=== PATIENT | female | born 1950 | race Caucasian/White ===

== ENCOUNTER 2016-04-03 11:07 | Observation (INO) | payer BC, MEDICARE ==
[2016-04-03] MEDS ORDERED: BABY ASPIRIN 81 MG CHEW PO ONE (11:12)
[2016-04-03] MEDS ORDERED: NITRO-BID 2% UD PACKETS TOP ONE (11:12)
[2016-04-03] MEDS ORDERED: ATARAX 25 MG PO ONE (11:13)
[2016-04-03] MEDS ORDERED: Sodium Chloride 0.9% 1000 ML 1,000 ML IV SCH (11:15)
[2016-04-03] MEDS ORDERED: Sodium Chloride 0.9% 1000 ML 1,000 ML ONE (11:19)
[2016-04-03] MEDS ORDERED: NITRO-BID 2% UD PACKETS ONE (11:19)
[2016-04-03] MEDS ORDERED: BABY ASPIRIN 81 MG CHEW ONE (11:19)
[2016-04-03] MEDS ORDERED: ATARAX 25 MG ONE (11:19)
--- NOTE | 2016-04-03 11:27 | ERPHSYRPT ---
- History of Present Illness Time Seen by Provider: 04/03/16 11:12 Historian: patient Patient Subjective Stated Complaint: PT REPORTS WAKING UP THIS AM WITH CHEST PRESSURE ET A FEELING LIKE SHE COULDN'T GET HER BREATH-DENIES VOMITING-SLIGHT HEADACHE ET INTERMITTANT NAUSEA Triage Nursing Assessment: PT PINK WARM ET DRY-RESP NONLABORED WITH LUNGS CLEAR- RIGHT RADIAL PULSE REGULAR ET STRONG Physician History: CC: chest pain Hx: 66 y/o patient of Dr Delong and cardiology. She has hx of HTN but no heart disease. She has had some chest tightness in the past 2 weeks. It was worse today. Radiated to her back and neck. She felt some diff breathing. Was seen at office and sent to ER. Continues to have chest tightness. No fever, chills, cough. No abd pain. No vomiting. Quality: tightness Chest Pain Radiation: neck, back Severity of Pain-Max: moderate Severity of Pain-Current: moderate Nitro Today/Relief: no nitro taken today Aspirin Treatment Today: 81 mg x 2, provided by ED Allergies/Adverse Reactions: Sulfa (Sulfonamide Antibiotics) [Sulfa(Sulfonamide Antibiotics)] Allergy ( Verified 04/03/16 11:17) Home Medications: Aspirin 81 gm Chew [Baby Aspirin 81 mg Chew] 81 mg PO DAILY 03/31/14 [ History] Levothyroxine Sodium 75 Mcg [Synthroid 75 Mcg] 75 mcg PO DAILY 03/31/14 [ History] Pravastatin Sodium [Pravachol] 40 mg PO DAILY 03/31/14 [History] Omeprazole 20 MG [Prilosec 20 mg] 20 mg PO DAILY 07/06/14 [History] Estrogens, Conjugated [Premarin] 1.25 mg PO DAILY 04/03/16 [History] Fluoxetine HCl [Prozac] 40 mg PO DAILY 04/03/16 [History] Losartan Potassium 50 mg [Cozaar 50 MG] 50 mg PO DAILY 04/03/16 [History] Hx Tetanus, Diphtheria Vaccination/Date Given: No Hx Influenza Vaccination/Date Given: No Hx Pneumococcal Vaccination/Date Given: Yes Immunizations Up to Date: Yes - Review of Systems Constitutional: Malaise, Weakness, No Fever, No Chills Eyes: No Symptoms Ears, Nose, & Throat: No Symptoms Respiratory: Dyspnea, No Cough Cardiac: Chest Pain, No Edema, No Palpitations, No Syncope Abdominal/Gastrointestinal: No Abdominal Pain, No Nausea, No Vomiting Skin: No Rash Neurological: No Headache All Other Systems: Reviewed and Negative - Past Medical History Pertinent Past Medical History: Yes Neurological History: No Pertinent History ENT History: No Pertinent History Cardiac History: High Cholesterol, Hypertension Respiratory History: No Pertinent History Endocrine Medical History: Hypothyroidism Musculoskeletal History: Other GI Medical History: GERD History: No Pertinent History Psycho-Social History: Depression Female Reproductive Disorders: Fibroids Other Medical History: bulging disc jhonny x3 - Past Surgical History Past Surgical History: Yes Neuro Surgical History: No Pertinent History Cardiac: Cardiac Catheterization Respiratory: No Pertinent History Gastrointestinal: Appendectomy, Cholecystectomy Genitourinary: No Pertinent History Musculoskeletal: No Pertinent History Female Surgical History: Hysterectomy, Other Other Surgical History: Breast. Sinus - Social History Smoking Status: Current every day smoker How long have you smoked: YRS Exposure to second hand smoke: Yes Drug Use: none Patient Lives Alone: No - Female History Hx Now: No - Nursing Vital Signs Temperature: 98.8 F Temperature Source: Oral Pulse Rate: 111 Respiratory Rate: 22 Pain Intensity: 8 - Physical Exam General Appearance: alert Eye Exam: PERRL/EOMI Ears, Nose, Throat Exam: normal ENT inspection, moist mucous membranes Neck Exam: normal inspection, non-tender, supple Respiratory Exam: normal breath sounds, lungs clear Cardiovascular Exam: regular rate/rhythm Gastrointestinal/Abdomen Exam: soft, No tenderness, No distention Back Exam: normal inspection Extremity Exam: normal inspection, normal range of motion, No calf tenderness, No pedal edema Neurologic Exam: alert, oriented x 3, cooperative, sensation nml, No motor deficits Skin Exam: warm, dry, No rash SpO2 Interpretation: normal SpO2: 96 Oxygen Delivery: Room Air - Course Nursing assessment & vital signs reviewed: Yes EKG Interpreted by Me: RATE (100), Sinus Rhythm, NORMAL AXIS, NORMAL INTERVALS ( QTc 467), NORMAL QRS, NORMAL ST-T - Radiology Exams cxr X-ray Interpretation: Reviewed by me, Negative Ordered Tests: Active Orders 24 hr Category Date Time Status Facility Security Officer STAT Care 04/03/16 11:12 Active Clean Catch Urine Specimen STAT Care 04/03/16 12:13 Active EKG-ER Only STAT Care 04/03/16 11:12 Active IV Insertion STAT Care 04/03/16 11:12 Active Pulse Oximetry (ED) STAT Care 04/03/16 11:12 Active CHEST 1 VIEW (PORTABLE) Stat Exams 04/03/16 11:13 Completed CBC W DIFF Stat Lab 04/03/16 11:25 Completed CMP Stat Lab 04/03/16 11:25 Completed PROTIME WITH INR Stat Lab 04/03/16 11:25 Completed PTT Stat Lab 04/03/16 11:25 Completed TROPONIN Q3H Lab 04/03/16 11:25 Completed TROPONIN Q3H Lab 04/03/16 14:15 Ordered TROPONIN Q3H Lab 04/03/16 17:15 Ordered TROPONIN Q3H Lab 04/03/16 20:15 Ordered TROPONIN Q3H Lab 04/03/16 23:15 Ordered UA Stat Lab 04/03/16 12:13 Ordered Medication Summary Generic Name Dose Route Start Last Admin Trade Name Freq PRN Reason Stop Dose Admin Sodium Chloride 1,000 mls @ 100 mls/hr 04/03/16 11:15 04/03/16 11:25 Sodium Chloride 0.9% 1000 Ml IV 05/03/16 11:14 100 mls/hr .Q10H ARAM Administration Discontinued Medications Generic Name Dose Route Start Last Admin Trade Name Freq PRN Reason Stop Dose Admin Aspirin 162 mg 04/03/16 11:12 04/03/16 11:24 Baby Aspirin 81 Mg Chew PO 04/03/16 11:13 162 mg STAT ONE Administration Aspirin Confirm 04/03/16 11:19 Baby Aspirin 81 Mg Chew Administered 04/03/16 11:20 Dose 162 mg .ROUTE .STK-MED ONE Hydroxyzine HCl 25 mg 04/03/16 11:13 04/03/16 11:25 Atarax 25 Mg PO 04/03/16 11:14 25 mg STAT ONE Administration Hydroxyzine HCl Confirm 04/03/16 11:19 Atarax 25 Mg Administered 04/03/16 11:20 Dose 25 mg .ROUTE .STK-MED ONE Sodium Chloride Confirm 04/03/16 11:19 Sodium Chloride 0.9% 1000 Ml Administered 04/03/16 11:20 Dose 1,000 mls @ ud .ROUTE .STK-MED ONE Nitroglycerin 1 gm 04/03/16 11:12 04/03/16 11:25 Nitro-Bid 2% Ud Packets TOP 04/03/16 11:13 1 gm STAT ONE Administration Nitroglycerin Confirm 04/03/16 11:19 Nitro-Bid 2% Ud Packets Administered 04/03/16 11:20 Dose 1 gm .ROUTE .STK-MED ONE Lab/Rad Data: Laboratory Result Diagrams 04/03/16 11:25 04/03/16 11:25 Laboratory Results 04/03/16 04/03/16 04/03/16 Range/Units 11:25 11:25 11:25 WBC (4.0-10.5) K/mm3 RBC (4.1-5.4) M/mm3 Hgb (12.0-16.0) gm/dl Hct (35-47) % MCV (78-100) fl MCH (26-32) pg MCHC (32-36) g/dl RDW (11.5-14.0) % Plt Count (150-450) K/mm3 MPV (6-9.5) fl Gran % (36.0-66.0) % Lymphocytes % (24.0-44.0) % Monocytes % (0.0-12.0) % Eosinophils % (0.00-5.0) % Basophils % (0.0-0.4) % Basophils # (0-0.4) INR 1.04 (0.8-3.0) PTT 29.9 (25.3-37.0) SECONDS Sodium 136 (136-145) mEq/L Potassium 3.9 (3.5-5.1) mEq/L Chloride 98 (98-107) mEq/L Carbon Dioxide 29.9 (21-32) mEq/L Anion Gap 12.3 (5-15) MEQ/L BUN 10 (9-20) mg/dL Creatinine 0.81 (0.55-1.30) mg/dl Estimated GFR > 60 ML/MIN Glucose 92 (70-110) MG/DL Calcium 9.3 (8.5-10.1) mg/dL Total Bilirubin 0.3 (0.2-1.0) mg/dL AST 15 (15-37) U/L ALT 12 (12-78) U/L Alkaline Phosphatase 142 H (46-116) U/L Troponin I < 0.017 (0.000-0.056) ng/ml Serum Total Protein 7.7 (6.4-8.2) gm/dL Albumin 3.2 L (3.4-5.0) g/dL 04/03/16 Range/Units 11:25 WBC 15.6 H (4.0-10.5) K/mm3 RBC 4.21 (4.1-5.4) M/mm3 Hgb 11.7 L (12.0-16.0) gm/dl Hct 36.2 (35-47) % MCV 86.0 (78-100) fl MCH 27.7 (26-32) pg MCHC 32.3 (32-36) g/dl RDW 13.8 (11.5-14.0) % Plt Count 390 (150-450) K/mm3 MPV 9.3 (6-9.5) fl Gran % 81.2 H (36.0-66.0) % Lymphocytes % 13.3 L (24.0-44.0) % Monocytes % 5.1 (0.0-12.0) % Eosinophils % 0.1 (0.00-5.0) % Basophils % 0.3 (0.0-0.4) % Basophils # 0.04 (0-0.4) INR (0.8-3.0) PTT (25.3-37.0) SECONDS Sodium (136-145) mEq/L Potassium (3.5-5.1) mEq/L Chloride (98-107) mEq/L Carbon Dioxide (21-32) mEq/L Anion Gap (5-15) MEQ/L BUN (9-20) mg/dL Creatinine (0.55-1.30) mg/dl Estimated GFR ML/MIN Glucose (70-110) MG/DL Calcium (8.5-10.1) mg/dL Total Bilirubin (0.2-1.0) mg/dL AST (15-37) U/L ALT (12-78) U/L Alkaline Phosphatase (46-116) U/L Troponin I (0.000-0.056) ng/ml Serum Total Protein (6.4-8.2) gm/dL Albumin (3.4-5.0) g/dL - Progress Progress Note: 04/03/16 12:18 The pain is improved with NTG paste. She feels tired. Symptoms suggest unstable angina. No current of injury and negative troponin. She agrees for observation here. Called Dr Richards for Wei for Tele obs. Discussed with .: Susie Will see patient in: hospital (observation) Counseled pt/family regarding: lab results, diagnosis, need for follow-up, rad results - Departure Time of Disposition: 12:19 Departure Disposition: Observation Clinical Impression: Chest pain, rule out acute myocardial infarction, Unstable angina, Smoker Condition: Fair Critical Care Time: No Referrals: ANIRUDH DELONG MD [Primary Care Provider] -
--- NOTE | 2016-04-03 11:33 | XRAY ---
Indication: Chest pain. Comparison: July 25, 2015. Portable chest again demonstrate scattered calcified granulomas. Remaining heart, lungs, and bony thorax remain normal.
[2016-04-03 11:35] LABS: BASOPHIL % 0.3 % (0.0-0.4); Eosinophil % 0.1 % (0.00-5.0); Granulocytes % 81.2 % (36.0-66.0); Lymphocytes % 13.3 % (24.0-44.0); Mean Platelet Volume 9.3 fl (6-9.5); Monocytes % 5.1 % (0.0-12.0); Platelet Count 390 K/mm3 (150-450); Red Blood Count 4.21 M/mm3 (4.1-5.4); Red Cell Distribution Width 13.8 % (11.5-14.0); White Blood Count 15.6 K/mm3 (4.0-10.5)
[2016-04-03 11:43] LABS: Mean Corpuscular Hemoglobin 27.7 pg (26-32)
[2016-04-03 11:49] LABS: INR 1.04 (0.8-3.0); PROTIME 11.6 SECONDS (9.95-12.35)
[2016-04-03 11:51] LABS: PTT 29.9 SECONDS (25.3-37.0)
[2016-04-03 11:59] LABS: ALBUMIN 3.2 g/dL (3.4-5.0); ALKALINE PHOSPHATASE 142 U/L (46-116); ANION GAP 12.3 MEQ/L (5-15); BILIRUBIN,TOTAL 0.3 mg/dL (0.2-1.0); BLOOD UREA NITROGEN 10 mg/dL (9-20); CHLORIDE 98 mEq/L (98-107); Carbon Dioxide 29.9 mEq/L (21-32); Glucose 92 MG/DL (70-110); Potassium 3.9 mEq/L (3.5-5.1); SGOT/AST 15 U/L (15-37); SGPT/ALT 12 U/L (12-78); SODIUM 136 mEq/L (136-145); Total Protein 7.7 gm/dL (6.4-8.2)
[2016-04-03] MEDS ORDERED: ENOXAPARIN SODIUM SQ ONE (12:25)
[2016-04-03] MEDS ORDERED: ENOXAPARIN SODIUM SQ SCH ×2 (12:30→22:00)
[2016-04-03 12:39] LABS: Collection Type CLEAN CATCH
[2016-04-03 12:40] LABS: COMPLETE URINE MICROSCOPIC? YES; Ph 7.5 (5-6)
[2016-04-03 12:56] LABS: Bacteria FEW /HPF (NEGATIVE); Epithelial Cells MODERATE /HPF (FEW)
[2016-04-03] MEDS ORDERED: Senokot-S Tablet PO PRN (13:23)
[2016-04-03] MEDS ORDERED: Zofran 4 MG/2 ML VIAL IV PRN (13:23)
[2016-04-03] MEDS ORDERED: MILK OF MAGNESIA 30 ML PO PRN (13:23)
[2016-04-03] MEDS ORDERED: Sodium Chloride 0.9% 500 ML 500 ML IV SCH (13:23)
[2016-04-03] MEDS ORDERED: MAALOX ES 30 ML UNIT DOSE PO PRN (13:23)
[2016-04-03] MEDS: NITRO-BID 2% UD PACKETS TOP SCH ×2 (13:51→21:55)
[2016-04-03] MEDS: TYLENOL 325 MG PO PRN (17:07)
[2016-04-03] MEDS: Pepcid 20 MG PO SCH (21:55)
[2016-04-03] MEDS: Tessalon Perles 100 MG PO SCH (21:56)
[2016-04-04 05:08] VITALS: O2SAT 94
[2016-04-04] MEDS: NITRO-BID 2% UD PACKETS TOP SCH (06:07)
[2016-04-04] MEDS: TYLENOL 325 MG PO PRN (06:38)
--- NOTE | 2016-04-04 09:24 | PCM.SSS ---
History of Present Illness - Chief Complaint Chief Complaint: chest pain History of Present Illness: is a 66 year old female who presented with acute onset of substernal chest pain, heaviness in nature. She was at rest, had associated radiation of pain to the neck, dyspnea and nausea. She has no chest pain today, tolerating po intake. states she follows with cardiology at and had a normal stress test last year. - Review of Systems Constitutional: No Fever, No Chills Respiratory: Short Of Breath Cardiac: Chest Pain, No Edema, No Syncope Abdominal/Gastrointestinal: Nausea, No Abdominal Pain, No Vomiting, No Diarrhea Skin: No Rash Neurological: No Dizziness, No Focal Weakness, No Sensory Changes All Other Systems: Reviewed and Negative Medications & Allergies Home Medications: Home Medication List Aspirin 81 gm Chew [Baby Aspirin 81 mg Chew] 81 mg PO DAILY 03/31/14 [ History Confirmed 04/03/16] Levothyroxine Sodium 75 Mcg [Synthroid 75 Mcg] 100 mcg PO DAILY 03/31/14 [ History Confirmed 04/03/16] Pravastatin Sodium [Pravachol] 40 mg PO DAILY 03/31/14 [History Confirmed ] Omeprazole 20 MG [Prilosec 20 mg] 20 mg PO DAILY 07/06/14 [History Confirmed ] Benzonatate 100 mg PO TID 04/03/16 [History Confirmed 04/03/16] Ca/D3/Mag#11/Zinc/Stock Analyst/Marcus/Bor [Caltrate 600+D Plus Tablet] 2 tab PO DAILY 04/03 [History Confirmed 04/03/16] Fluoxetine HCl [Prozac] 40 mg PO DAILY 04/03/16 [History Confirmed 04/03/16] Losartan Potassium 50 mg [Cozaar 50 MG] 50 mg PO DAILY 04/03/16 [History Confirmed 04/03/16] Nitroglycerin 0.4 mg Tablet [Nitrostat 0.4 MG Tablet] 0.4 mg SL UD PRN # 20 bottle 04/04/16 [Rx] Allergies/Adverse Reactions: Allergies Allergy/AdvReac Type Severity Reaction Status Date / Time Sulfa (Sulfonamide Allergy Verified 04/03/16 13:44 Antibiotics) [Sulfa(Sulfonamide Antibiotics)] - Past Medical History Past Medical History: Yes Neurological History: No Pertinent History ENT History: No Pertinent History Cardiac History: High Cholesterol, Hypertension Respiratory History: No Pertinent History, Bronchitis Endocrine Medical History: Hypothyroidism Musculoskelatal History: Other GI Medical History: Diverticulitis, GERD, Hemorrhoids History: No Pertinent History Pyscho-Social History: Depression Reproductive Disorders: Fibroids Comment: bulging disc jhonny x3 - Female History Hx Last Menstrual Period: POSTMENOPASAL Are you now?: No - Past Surgical History Past Surgical History: Yes Neuro Surgical History: No Pertinent History Cardiac History: Cardiac Catheterization Respiratory Surgery: No Pertinent History GI Surgical History: Appendectomy, Cholecystectomy Genitourinary Surgical Hx: No Pertinent History Musculskeletal Surgical Hx: No Pertinent History Female Surgical History: Hysterectomy, Other Other Surgical History: Breast. Sinus - Social History Smoking Status: Former smoker How long have you smoked: YRS Exposure to second hand smoke: No Alcohol: None Drug Use: none - Physical Exam Vital Signs: Vital Signs - 24 hr Temp Pulse Pulse Resp BP Pulse Ox 04/04/16 08:00 94 L 04/04/16 07:40 98.4 F 82 20 145/71 94 L 04/04/16 04:00 98.5 F 86 18 136/66 94 L 04/04/16 00:00 98.2 F 91 H 18 133/63 95 04/03/16 20:00 99.1 F 94 H 18 126/60 95 04/03/16 15:55 98.8 F 100 H 18 127/58 92 L 04/03/16 13:21 99.7 F 90 19 168/67 92 L 04/03/16 13:07 98.8 F 96 H 18 129/77 94 L 04/03/16 12:34 92 H 16 140/84 93 L 04/03/16 12:19 98.8 F 111 H 22 96 04/03/16 11:46 90 16 151/81 95 04/03/16 11:21 96 04/03/16 11:08 98.8 F 111 H 110 H 22 172/78 96 General Appearance: no apparent distress, alert Neurologic Exam: alert, oriented x 3, cooperative, normal mood/affect, nml cerebellar function, nml station & gait, sensation nml, No motor deficits Eye Exam: PERRL/EOMI, eyes nml inspection Respiratory Exam: normal breath sounds, lungs clear, No respiratory distress Cardiovascular Exam: regular rate/rhythm, normal heart sounds, normal peripheral pulses Gastrointestinal/Abdomen Exam: soft, normal bowel sounds, No tenderness, No mass Extremity Exam: normal inspection, normal range of motion, pelvis stable Skin Exam: normal color, warm, dry, No rash Results - Labs Lab/Micro Results: Lab Results-Last 24 Hours 04/03/16 04/03/16 04/03/16 Range/Units 14:21 17:27 19:45 Troponin I < 0.017 < 0.017 < 0.017 (0.000-0.056) ng/ml Triglycerides (30-200) mg/dL Cholesterol (100-200) mg/dL LDL Cholesterol (5-99) mg/dL HDL Cholesterol (35-60) mg/dL Heart Disease Risk Ratio 04/03/16 04/04/16 Range/Units 23:30 05:07 Troponin I < 0.017 (0.000-0.056) ng/ml Triglycerides 156 (30-200) mg/dL Cholesterol 188 (100-200) mg/dL LDL Cholesterol 66 (5-99) mg/dL HDL Cholesterol 109 H (35-60) mg/dL Heart Disease Risk Ratio 1.7 - Other Procedures and Tests Respiratory Therapy 04/04/16 05:00 EKG ONCE 04/05/16 05:00 EKG ONCE 04/06/16 05:00 EKG ONCE Assessment/Plan (1) Chest pain, rule out acute myocardial infarction Current Visit: Yes Status: Acute Assessment & Plan: MN ruled out, symptoms are certainly concerning for angina and recommend she followup with her cnc maintenance technician BRENDA, advised to continue aspirin 81mg daily and will give rx for nitro for home Code(s): R07.9 - CHEST PAIN, UNSPECIFIED (2) Smoker Current Visit: Yes Status: Acute Code(s): F17.200 - NICOTINE DEPENDENCE, UNSPECIFIED, UNCOMPLICATED Hospital Summary - Vitals & Intake/Output Vital Signs: Vital Signs Temperature 98.4 F 04/04/16 07:40 Pulse Rate 82 04/04/16 07:40 Respiratory Rate 20 04/04/16 07:40 Blood Pressure 145/71 04/04/16 07:40 O2 Sat by Pulse Oximetry 94 L 04/04/16 08:00 Intake & Output: Intake & Output 04/01/16 04/02/16 04/03/16 04/04/16 11:59 11:59 11:59 11:59 Intake Total 1352 Balance 1352 Weight 68.629 kg - Lab Result Diagrams: 04/03/16 11:25 04/03/16 11:25 Lab Results-Last 24 Hrs: Lab Results-Last 24 Hours 04/03/16 04/03/16 04/03/16 Range/Units 14:21 17:27 19:45 Troponin I < 0.017 < 0.017 < 0.017 (0.000-0.056) ng/ml Triglycerides (30-200) mg/dL Cholesterol (100-200) mg/dL LDL Cholesterol (5-99) mg/dL HDL Cholesterol (35-60) mg/dL Heart Disease Risk Ratio 04/03/16 04/04/16 Range/Units 23:30 05:07 Troponin I < 0.017 (0.000-0.056) ng/ml Triglycerides 156 (30-200) mg/dL Cholesterol 188 (100-200) mg/dL LDL Cholesterol 66 (5-99) mg/dL HDL Cholesterol 109 H (35-60) mg/dL Heart Disease Risk Ratio 1.7 - Procedures and Test Procedures and Tests throughout Hospitalization: Therapy Orders & Screens 04/03/16 19:10 EKG ONCE Comment: 04/04/16 05:00 EKG ONCE Comment: 04/05/16 05:00 EKG ONCE Comment: 04/06/16 05:00 EKG ONCE Comment: - Discharge Disposition: Home, Self-Care Condition: Fair Prescriptions: New Nitroglycerin 0.4 mg Tablet [Nitrostat 0.4 MG Tablet] 0.4 mg SL UD PRN #20 bottle PRN Reason: Chest Pain Continue Pravastatin Sodium [Pravachol] 40 mg PO DAILY Aspirin 81 gm Chew [Baby Aspirin 81 mg Chew] 81 mg PO DAILY Levothyroxine Sodium 75 Mcg [Synthroid 75 Mcg] 100 mcg PO DAILY Omeprazole 20 MG [Prilosec 20 mg] 20 mg PO DAILY Fluoxetine HCl [Prozac] 40 mg PO DAILY Losartan Potassium 50 mg [Cozaar 50 MG] 50 mg PO DAILY Ca/D3/Mag#11/Zinc/Stock Analyst/Marcus/Bor [Caltrate 600+D Plus Tablet] 2 tab PO DAILY Benzonatate 100 mg PO TID Discontinued Estrogens, Conjugated [Premarin] 1.25 mg PO DAILY Additional Instructions: stop taking estrogen, use nitro as needed. if pain persists after 3 nitro call 911. call your cnc maintenance technician for a followup appointment to be seen as soon as possible. Follow up with: ANIRUDH DELONG MD [Primary Care Provider] -
[2016-04-04] MEDS ORDERED: ZOCOR 20MG PO SCH (10:00)
[2016-04-04] MEDS ORDERED: Cozaar 50 MG PO SCH (10:00)
[2016-04-04] MEDS ORDERED: Ecotrin 325 MG PO SCH (10:00)
[2016-04-04] MEDS ORDERED: Prozac 20 MG PO SCH (10:00)
[2016-04-04] MEDS ORDERED: ECOTRIN 81 MG PO SCH (10:00)
[2016-04-04] MEDS ORDERED: SYNTHROID 100 MCG PO SCH (10:00)
[2016-04-04] MEDS ORDERED: NON-FORMULARY ITEM (Estrogens, Conjugated [Premarin] 1.25 MG) PO SCH (10:00)
[2016-04-04] MEDS ORDERED: NON-FORMULARY ITEM (Fluoxetine Hcl [Prozac] 40 MG) PO SCH (10:00)
[2016-04-04] MEDS ORDERED: PREMARIN PO SCH (10:00)
[2016-04-04] MEDS ORDERED: NON-FORMULARY ITEM (Omeprazole 20 Mg [Prilosec 20 Mg] 20 MG) PO SCH (10:00)
[2016-04-04] MEDS ORDERED: Protonix 40MG Tablet PO SCH (10:00)
[2016-04-04] MEDS ORDERED: BABY ASPIRIN 81 MG CHEW PO SCH (10:00)
[2016-04-04] MEDS ORDERED: NON-FORMULARY ITEM (Pravastatin Sodium [Pravachol] 40 MG) PO SCH (10:00)
[2016-04-04] MEDS: Pepcid 20 MG PO SCH (10:30)
[2016-04-04] MEDS: Tessalon Perles 100 MG PO SCH (10:30)
[2016-04-04 11:57] VITALS: BP 139/71; PULSE 75
== END 2016-04-04 13:10 | disposition home or self-care (01) ==
LOC: ED 11:07 → MED SURG 13:19
PROVIDERS: ADMIT Family Medicine; ATTEND Family Medicine
DX: R07.89 Other chest pain (principal); I10 Essential (primary) hypertension; E03.9 Hypothyroidism, unspecified; K21.9 Gastro-esophageal reflux disease without esophagitis; F32.9 Major depressive disorder, single episode, unspecified; F17.200 Nicotine dependence, unspecified, uncomplicated; Z79.899 Other long term (current) drug therapy
CPT/HCPCS: 36000; 36415; 71010; 80053; 80061; 81000; 83721; 84484; 85025; 85610; 85730; 93005; 93041; 93268; 96360; 96361; 99284; 99285; G0378; J1650

== ENCOUNTER 2017-05-23 06:27 | Day surgery (SDC) | payer BC, MEDICARE ==
[~2017-05-23 06:27] MED LIST: Lactated Ringers 1,000 ML IV SCH
[2017-05-23] MEDS ORDERED: DIPRIVAN 200 MG/20 ML IV ONE (06:28)
[2017-05-23] MEDS ORDERED: Versed 2 MG/2 ML Injection IV ONE (06:28)
[2017-05-23] MEDS ORDERED: Lactated Ringers 1,000 ML IV ONE (08:23)
[2017-05-23 09:38] VITALS: BP 116/69; O2SAT 97
[2017-05-23 09:51] VITALS: PULSE 60
--- NOTE | 2017-05-23 13:32 | OP ---
SURGERY DATE/TIME: 05/23/2017 0809 PREOPERATIVE DIAGNOSES: 1) Abdominal pain. 2) Weight loss. 3) Hematochezia. POSTOPERATIVE DIAGNOSES: 1) Normal EGD. 2) Normal colon. PROCEDURES: 1) EGD. 2) Colonoscopy. SURGEON: Francisco J Carvajal M.D. ANESTHESIA: MAC by Lai Henderson CRNA. ESTIMATED BLOOD LOSS: None. SPECIMENS: None. DESCRIPTION OF PROCEDURE: After informed written consent was obtained, the patient was taken to the endoscopy suite. She underwent monitored anesthesia and a bite block was inserted. The endoscope was inserted in the posterior oropharynx and under direct visualization the esophagus was traversed. The esophageal mucosa appeared normal free of lesions or defects. The gastroesophageal junction likewise appeared normal. Upon entering the stomach there was normal rugated gastric mucosa free of lesion or defect. The level of the antrum was inspected and there were no obvious mucosal abnormalities. There was some redundancy in the area of the pylorus but no obvious masses or mucosal abnormalities were appreciable. The duodenum first and second portions likewise appeared normal upon inspection. There was no evidence to correlate any abnormality in the anatomical areas in spite of thickening mucosa present on CT scan. Upon withdrawal again all mucosal structures appeared normal. The scope was removed and the scopes were switched. A digital rectal exam showed normal sphincter tone and no internal lesions. The scope was inserted in the rectum and sequentially the entire colonic mucosa was traversed. The level of cecum was reached and verified with direct visualization of ileocecal valve. Upon withdrawal careful mucosal inspection revealed no abnormalities. Prep was noted to be fair. There was some liquid stool present. Prior to withdrawal retroflexion was performed and showed minimal internal hemorrhoids. The scope was removed and the patient was transferred to the recovery room in excellent condition.
== END 2017-05-23 09:57 | disposition home or self-care (01) ==
LOC: SDC 06:27
PROVIDERS: ATTEND Family Medicine
PROC: 0DJ08ZZ Inspection of Upper Intestinal Tract, Via Natural or Artificial Opening Endoscopic (ICD-10-PCS; principal; 2017-05-23)
PROC: 0DJD8ZZ Inspection of Lower Intestinal Tract, Via Natural or Artificial Opening Endoscopic (ICD-10-PCS; 2017-05-23)
DX: R10.9 Unspecified abdominal pain (principal); R63.4 Abnormal weight loss; K92.1 Melena
CPT/HCPCS: J2250; J2704

== ENCOUNTER 2017-08-03 11:53 | Emergency (ER) | payer BC, MEDICARE ==
[2017-08-03] MEDS ORDERED: Phenergan 25 MG INJ IV ONE (12:07)
[2017-08-03] MEDS ORDERED: Sodium Chloride 0.9% 1000 ML 1,000 ML IV STA (12:07)
--- NOTE | 2017-08-03 12:13 | ERPHSYRPT ---
- History of Present Illness Time Seen by Provider: 08/03/17 12:09 Historian: patient Physician History: 67-year-old white female who states she was recently diagnosed with Crohn's disease arrives with complaint of lower abdominal pain described as a cramping states she's had some blood in her stool symptoms since last night. Patient states she has recently been diagnosed with Crohn's she states she was supposed to have a CT of her abdomen performed on Saturday. Patient is not vomiting she does state she is nauseous. Past medical history includes recent diagnosis of Crohn disease, hypercholesterolemia, high blood pressure, hypothyroidism, GERD, depression, fibroids, degenerative disc disease. Past surgical history includes cholecystectomy, cardiac catheter, appendectomy, hysterectomy, breast reduction surgery, sinus surgery. Social history patient is a former smoker. Timing/Duration: yesterday (last night) Activities at Onset: none Quality: cramping Abdominal Pain Onset Location: other (bilateral lower abdomen) Pain Radiation: no radiation Severity of Pain-Max: moderate Severity of Pain-Current: moderate Modifying Factors: Improves With: nothing Associated Symptoms: nausea, other (patient states she has had some blood in her stools), No back, No chest pain, No diaphoresis, No diarrhea, No fever/ chills, No fatigue, No headache, No heartburn, No loss of appetite, No neck pain , No rash, No shortness of breath, No syncope, No vomiting, No weakness Previous symptoms: other (Recent diagnosis of Crons disease) Allergies/Adverse Reactions: Sulfa (Sulfonamide Antibiotics) [Sulfa(Sulfonamide Antibiotics)] Allergy ( Intermediate, Verified 08/03/17 12:09) Tightness of Throat itchng in throat Home Medications: Aspirin 81 gm Chew [Baby Aspirin 81 mg Chew] 81 mg PO DAILY 03/31/14 [ History] Pravastatin Sodium [Pravachol] 40 mg PO DAILY 03/31/14 [History] Omeprazole 20 MG [Prilosec 20 mg] 20 mg PO DAILY 07/06/14 [History] Scott/D3/Mag11/Zinc/Cathode Maker/Marcus/Bor [Caltrate 600+D Plus Tablet] 2 tab PO DAILY 04/03 [History] Fluoxetine HCl [Prozac] 40 mg PO DAILY 04/03/16 [History] Losartan Potassium 50 mg [Cozaar 50 MG] 50 mg PO DAILY 04/03/16 [History] Cetirizine HCl [Zyrtec] 1 tab PO DAILY 05/21/17 [History] Levothyroxine Sodium 75 Mcg [Synthroid 75 Mcg] 75 mcg PO DAILY 05/21/17 [ History] Hx Tetanus, Diphtheria Vaccination/Date Given: No Hx Influenza Vaccination/Date Given: No Hx Pneumococcal Vaccination/Date Given: Yes - Review of Systems Constitutional: No Fever, No Chills Eyes: No Symptoms Ears, Nose, & Throat: No Symptoms Respiratory: No Cough, No Dyspnea Cardiac: No Chest Pain, No Edema, No Syncope Abdominal/Gastrointestinal: Abdominal Pain, Nausea, Hematochezia, No Vomiting, No Diarrhea, No Constipation, No Hematemesis, No Melena, No Dysphagia, No Appetite Changes Genitourinary Symptoms: No Dysuria Musculoskeletal: No Back Pain, No Neck Pain Skin: No Rash Neurological: No Dizziness, No Focal Weakness, No Sensory Changes Psychological: No Symptoms Endocrine: No Symptoms All Other Systems: Reviewed and Negative - Past Medical History Pertinent Past Medical History: Yes Neurological History: No Pertinent History ENT History: No Pertinent History Cardiac History: High Cholesterol, Hypertension Respiratory History: No Pertinent History, Bronchitis Endocrine Medical History: Hypothyroidism Musculoskeletal History: Other GI Medical History: Diverticulitis, GERD, Gallbladder Disease, Hemorrhoids History: Other Psycho-Social History: Depression Female Reproductive Disorders: Fibroids Other Medical History: bulging disc jhonny x3 - Past Surgical History Past Surgical History: Yes Neuro Surgical History: No Pertinent History Cardiac: Cardiac Catheterization Respiratory: No Pertinent History Gastrointestinal: Appendectomy, Cholecystectomy Genitourinary: No Pertinent History Musculoskeletal: No Pertinent History Female Surgical History: Hysterectomy, Tubal Ligation Other Surgical History: Breast-reduction. Sinus-"surgery,went up and cleaned it out" - Social History Smoking Status: Current every day smoker How long have you smoked: since age Exposure to second hand smoke: Yes () Drug Use: none Patient Lives Alone: No - Nursing Vital Signs Nursing Vital Signs: Initial Vital Signs Temperature 99.5 F 08/03/17 11:57 Pulse Rate 88 08/03/17 11:57 Respiratory Rate 18 08/03/17 11:57 Blood Pressure 148/82 08/03/17 11:57 O2 Sat by Pulse Oximetry 98 08/03/17 11:57 Pain Scale Pain Intensity 2 - Physical Exam General Appearance: mild distress, alert, other (well-developed well-nourished female alert, oriented x 3, mild distress) Eye Exam: PERRL/EOMI, eyes nml inspection Ears, Nose, Throat Exam: normal ENT inspection, pharynx normal, moist mucous membranes Neck Exam: normal inspection, non-tender, supple, full range of motion Respiratory Exam: normal breath sounds, lungs clear, No respiratory distress Cardiovascular Exam: regular rate/rhythm, normal heart sounds Gastrointestinal/Abdomen Exam: soft, normal bowel sounds, No tenderness, No mass Back Exam: normal inspection, normal range of motion, No CVA tenderness, No vertebral tenderness Extremity Exam: normal inspection, normal range of motion, pelvis stable Neurologic Exam: alert, oriented x 3, cooperative, pharmaceutical service representative II-XII nml as tested, normal mood/affect, nml cerebellar function, sensation nml, No motor deficits Skin Exam: normal color, warm, dry SpO2 Interpretation: normal - Course Nursing assessment & vital signs reviewed: Yes - CT Exams Abdomen/Pelvis CT Interpretation: Tele-radiologist Report (CT abdomen and pelvis: Impression: 1. Acute segmental enteritis of the mid and distal illeum. In the lower abdomen and upper pelvis, this is consistent with given history of Crohn's diseasethere is no obstruction or bowel perforation, 2. There are mildly prominent reactive mesenteric lymph nodes adjacent to the segments of ileitis) Ordered Tests: Active Orders 24 hr Category Date Time Status IV Insertion STAT Care 08/03/17 12:07 Active ABDOMEN AND PELVIS W CONTRAST [CT] Stat Exams 08/03/17 13:40 Taken AMYLASE Stat Lab 08/03/17 12:35 Completed CBC W DIFF Stat Lab 08/03/17 12:35 Completed CMP Stat Lab 08/03/17 12:35 Completed LIPASE Stat Lab 08/03/17 12:35 Completed Occult Blood,Stool Other Stat Lab 08/03/17 15:33 Completed UA W/ MICROSCOPIC Stat Lab 08/03/17 12:35 Completed Medication Summary Discontinued Medications Generic Name Dose Route Start Last Admin Trade Name Freq PRN Reason Stop Dose Admin Sodium Chloride 1,000 mls @ 999 mls/hr 08/03/17 12:07 08/03/17 13:49 Sodium Chloride 0.9% 1000 Ml IV 08/03/17 13:07 Infused .Q1H1M STA Infusion Sodium Chloride Confirm 08/03/17 12:19 Sodium Chloride 0.9% 1000 Ml Administered 08/03/17 12:20 Dose 1,000 mls @ ud .ROUTE .STK-MED ONE Morphine Sulfate 4 mg 08/03/17 15:15 08/03/17 15:25 Morphine Sulfate 4 Mg Inj IV 08/03/17 15:16 4 mg STAT ONE Administration Morphine Sulfate Confirm 08/03/17 15:23 Morphine Sulfate 4 Mg Inj Administered 08/03/17 15:24 Dose 4 mg .ROUTE .STK-MED ONE Promethazine HCl 12.5 mg 08/03/17 12:07 08/03/17 12:32 Phenergan 25 Mg Inj IV 08/03/17 12:08 12.5 mg STAT ONE Administration Promethazine HCl Confirm 08/03/17 12:18 Phenergan 25 Mg Inj Administered 08/03/17 12:19 Dose 25 mg .ROUTE .STK-MED ONE Lab/Rad Data: Laboratory Result Diagrams 08/03/17 12:35 08/03/17 12:35 Laboratory Results 08/03/17 08/03/17 08/03/17 Range/Units 15:33 12:35 12:35 WBC (4.0-10.5) K/mm3 RBC (4.1-5.4) M/mm3 Hgb (12.0-16.0) gm/dl Hct (35-47) % MCV (78-100) fl MCH (26-32) pg MCHC (32-36) g/dl RDW (11.5-14.0) % Plt Count (150-450) K/mm3 MPV (6-9.5) fl Gran % (36.0-66.0) % Eos # (Auto) (0-0.5) Absolute Lymphs (auto) (1.0-4.6) Absolute Monos (auto) (0.0-1.3) Lymphocytes % (24.0-44.0) % Monocytes % (0.0-12.0) % Eosinophils % (0.00-5.0) % Basophils % (0.0-0.4) % Absolute Granulocytes (1.4-6.9) Basophils # (0-0.4) Sodium (137-145) mmol/L Potassium (3.5-5.1) mmol/L Chloride (98-107) mmol/L Carbon Dioxide (22-30) mmol/L Anion Gap (5-15) MEQ/L BUN (7-17) mg/dL Creatinine (0.52-1.04) mg/dL Estimated GFR ML/MIN Glucose (74-106) mg/dL Calcium (8.4-10.2) mg/dL Total Bilirubin (0.2-1.3) mg/dL AST (14-36) U/L ALT (0-35) U/L Alkaline Phosphatase (38-126) U/L Serum Total Protein (6.3-8.2) g/dL Albumin (3.5-5.0) g/dL Amylase (30-110) U/L Lipase 58 (23-300) U/L Ur Collection Type CLEAN CATCH Urine Color YELLOW (YELLOW) Urine Appearance CLEAR (CLEAR) Urine pH 5.0 (5-6) Ur Specific [place] 1.010 (1.005-1.025) Urine Protein NEGATIVE (Negative) Urine Ketones NEGATIVE (NEGATIVE) Urine Blood 250 (0-5) Donny/ul Urine Nitrite NEGATIVE (NEGATIVE) Urine Bilirubin NEGATIVE (NEGATIVE) Urine Urobilinogen NORMAL (0-1) mg/dL Ur Leukocyte Esterase NEGATIVE (NEGATIVE) Urine Microscopic RBC 10-15 (0-2) /HPF Urine Microscopic WBC 0-2 (0-5) /HPF Ur Epithelial Cells FEW (FEW) /HPF Urine Bacteria FEW (NEGATIVE) /HPF Urine Culture Reflexed NO (NO) Urine Glucose NEGATIVE (NEGATIVE) mg/dL Stool Occult Blood NEGATIVE (Negative) Specimen Received 08-03-17 [id number] 08/03/17 08/03/17 Range/Units 12:35 12:35 WBC 5.8 (4.0-10.5) K/mm3 RBC 4.49 (4.1-5.4) M/mm3 Hgb 12.6 (12.0-16.0) gm/dl Hct 38.1 (35-47) % MCV 84.9 (78-100) fl MCH 28.1 (26-32) pg MCHC 33.1 (32-36) g/dl RDW 15.1 H (11.5-14.0) % Plt Count 260 (150-450) K/mm3 MPV 9.3 (6-9.5) fl Gran % 62.0 (36.0-66.0) % Eos # (Auto) 0.30 (0-0.5) Absolute Lymphs (auto) 1.39 (1.0-4.6) Absolute Monos (auto) 0.49 (0.0-1.3) Lymphocytes % 23.8 L (24.0-44.0) % Monocytes % 8.4 (0.0-12.0) % Eosinophils % 5.1 H (0.00-5.0) % Basophils % 0.7 (0.0-0.4) % Absolute Granulocytes 3.61 (1.4-6.9) Basophils # 0.04 (0-0.4) Sodium 139 (137-145) mmol/L Potassium 3.8 (3.5-5.1) mmol/L Chloride 101 (98-107) mmol/L Carbon Dioxide 29 (22-30) mmol/L Anion Gap 13.0 (5-15) MEQ/L BUN 11 (7-17) mg/dL Creatinine 0.62 (0.52-1.04) mg/dL Estimated GFR > 60.0 ML/MIN Glucose 82 (74-106) mg/dL Calcium 9.6 (8.4-10.2) mg/dL Total Bilirubin 0.50 (0.2-1.3) mg/dL AST 19 (14-36) U/L ALT 11 (0-35) U/L Alkaline Phosphatase 138 H (38-126) U/L Serum Total Protein 7.1 (6.3-8.2) g/dL Albumin 4.0 (3.5-5.0) g/dL Amylase 62 (30-110) U/L Lipase (23-300) U/L Ur Collection Type Urine Color (YELLOW) Urine Appearance (CLEAR) Urine pH (5-6) Ur Specific [place] (1.005-1.025) Urine Protein (Negative) Urine Ketones (NEGATIVE) Urine Blood (0-5) Donny/ul Urine Nitrite (NEGATIVE) Urine Bilirubin (NEGATIVE) Urine Urobilinogen (0-1) mg/dL Ur Leukocyte Esterase (NEGATIVE) Urine Microscopic RBC (0-2) /HPF Urine Microscopic WBC (0-5) /HPF Ur Epithelial Cells (FEW) /HPF Urine Bacteria (NEGATIVE) /HPF Urine Culture Reflexed (NO) Urine Glucose (NEGATIVE) mg/dL Stool Occult Blood (Negative) Specimen Received - Progress Progress: improved Progress Note: 08/03/17 15:21 67-year-old white female arrives with complaint of lower abdominal pain and cramping since today patient does have a history of Crohn's switches recently diagnosed Patient's white count is 5.8 hemoglobin 12.6 hematocrit 38[address] of the abdomen and pelvis remarkable for 1. Acute segmental enteritis of the mid and distal ileum in the lower abdomen and upper pelvis consistent with Crohn's disease. There is no bowel obstruction or bowel perforation. 2. There are mildly prominent reactive mesenteric lymph nodes adjacent to the segment of ileitis. Patient was given IV normal saline Phenergan Will give patient morphine patient plans to follow-up with her dairy science teacher on Saturday 4 days from now. Will anticipate pain medications for the patient. 08/03/17 15:51 Patient feeling better after morphine, Stool is negative for blood, Will plan to discharge with [place]. Patient to follow-up with her yesterday neurologist or her family doctor. Will place patient on clear fluids 24-48 hours. - Departure Time of Disposition: 15:51 Departure Disposition: Home Clinical Impression: History of Crohn's disease Abdominal pain Qualifiers: Abdominal location: generalized Qualified Code(s): R10.84 - Generalized abdominal pain Condition: Fair Critical Care Time: No Referrals: ANIRUDH DELONG MD [Primary Care Provider] - Additional Instructions: Return home. Plenty of fluids a fluids only 24-48 hours if abdominal pain. [place] 5/325 one orally every 4-6 hours as needed for pain. Zofran 4 mg orally every 4-6 hours as needed for nausea. Follow-up with your dairy science teacher or your family doctor. Return for acute distress or for severe symptoms. Prescriptions: Ondansetron ODT 4 MG [Zofran Odt 4 mg] 4 mg PO Q6H PRN PRN #10 tab.rapdis PRN Reason: Vomiting Hydrocodone/Acetaminophen [[place] 5-325 Tablet] 1 tab PO Q4-6HPRN PRN #10 tablet MDD 6 tablets PRN Reason: Pain
[2017-08-03] MEDS ORDERED: Phenergan 25 MG INJ ONE (12:18)
[2017-08-03] MEDS ORDERED: Sodium Chloride 0.9% 1000 ML 1,000 ML ONE (12:19)
[2017-08-03 12:51] LABS: BASOPHIL % 0.7 % (0.0-0.4); Basophil (Absolute #) 0.04 (0-0.4); Eosinophil % 5.1 % (0.00-5.0); Granulocyte Absolute (ANC) 3.61 (1.4-6.9); Hematocrit 38.1 % (35-47); Hemoglobin 12.6 gm/dl (12.0-16.0); Lymphocyte (Absolute #) 1.39 (1.0-4.6); Lymphocytes % 23.8 % (24.0-44.0); Mean Cell Volume 84.9 fl (78-100); Mean Corpuscular Hemoglobin 28.1 pg (26-32); Mean Corpuscular Hgb Concent. 33.1 g/dl (32-36); Mean Platelet Volume 9.3 fl (6-9.5); Monocyte (Absolute #) 0.49 (0.0-1.3); Monocytes % 8.4 % (0.0-12.0); Platelet Count 260 K/mm3 (150-450); Red Blood Count 4.49 M/mm3 (4.1-5.4); Red Cell Distribution Width 15.1 % (11.5-14.0); White Blood Count 5.8 K/mm3 (4.0-10.5)
[2017-08-03 13:08] LABS: ALKALINE PHOSPHATASE 138 U/L (38-126); AMYLASE 62 U/L (30-110); BLOOD UREA NITROGEN 11 mg/dL (7-17); CHLORIDE 101 mmol/L (98-107); Calcium 9.6 mg/dL (8.4-10.2); Carbon Dioxide 29 mmol/L (22-30); Creatinine 1 0.62 mg/dL (0.52-1.04); Glucose 82 mg/dL (74-106); Potassium 3.8 mmol/L (3.5-5.1); SGOT/AST 19 U/L (14-36); SGPT/ALT 11 U/L (0-35); SODIUM 139 mmol/L (137-145); Total Protein 7.1 g/dL (6.3-8.2)
[2017-08-03 13:18] LABS: Appearance CLEAR (CLEAR); Bacteria FEW /HPF (NEGATIVE); Bilirubin NEGATIVE (NEGATIVE); Blood 250 Ery/ul (0-5); Epithelial Cells FEW /HPF (FEW); Glucose NEGATIVE (NEGATIVE); Ketones NEGATIVE (NEGATIVE); Leukocyte Esterase NEGATIVE (NEGATIVE); Nitrite NEGATIVE (NEGATIVE); Protein,Urine Dip NEGATIVE (Negative); Urobilinogen NORMAL mg/dL (0-1); WBC 0-2 /HPF (0-5)
[2017-08-03] MEDS ORDERED: MORPHINE SULFATE 4 MG INJ IV ONE (15:15)
[2017-08-03] MEDS ORDERED: MORPHINE SULFATE 4 MG INJ ONE (15:23)
[2017-08-03 16:18] VITALS: BP 136/77; PULSE 90; O2SAT 96
--- NOTE | 2017-08-03 21:01 | XRAY ---
Indication: Abdomen pain. History Crohn's. Multiple contiguous axial images obtained through the abdomen and pelvis using 80 cc Isovue 370 contrast only. Comparison: May 16, 2017. Lung bases demonstrates stable bibasilar calcified granulomas. No infiltrate or effusion. Heart is not enlarged. Stable small hiatal hernia. Noncontrasted stomach and bowel loops nonobstructed. Distal ileum again demonstrates mild circumferential wall thickening favoring patient's history Crohn's disease. No free fluid/air. Again sigmoid diverticulosis without diverticulitis. Previous cholecystectomy and hysterectomy. Remaining liver, pancreas, spleen, adrenal glands, kidneys, ureters, and bladder appear unremarkable. There remains mild aortoiliac calcifications. No AAA or pathological retroperitoneal lymphadenopathy. Osseous structures intact again with mild multilevel spinal degenerative changes. Impression: 1. Again distal ileal bowel wall thickening consistent with patient's history of Crohn's. No complications. 2. Stable sigmoid diverticulosis and small hiatal hernia. Comment: Preliminary interpretation was made by [facility]. No discrepancy. CTDI 17.86
== END 2017-08-03 16:18 | disposition home or self-care (01) ==
LOC: ED 11:53
DX: R10.84 Generalized abdominal pain (principal); R10.32 Left lower quadrant pain; R10.31 Right lower quadrant pain; R11.2 Nausea with vomiting, unspecified; Z87.19 Personal history of other diseases of the digestive system; Z79.82 Long term (current) use of aspirin; Z79.899 Other long term (current) drug therapy
CPT/HCPCS: 36000; 36415; 74177; 80053; 81000; 82150; 82272; 83690; 85025; 96360; 96361; 96374; 96375; 99284; J2270; J2550

== ENCOUNTER 2017-08-10 09:48 | Emergency (ER) | payer BC, MEDICARE ==
[2017-08-10 10:04] VITALS: O2SAT 98
--- NOTE | 2017-08-10 10:11 | ERPHSYRPT ---
- History of Present Illness Time Seen by Provider: 08/10/17 10:06 Source: patient Exam Limitations: no limitations Patient Subjective Stated Complaint: left knee pain since yesterday morning. Triage Nursing Assessment: to room per w/c. skin w/d, color normal, resp easy. unable to bear weight on left leg. leg warm, normal color. good pedal pulse. Physician History: 67-year-old white female with history of hypercholesterolemia, high blood pressure, hypothyroidism, diverticulitis, GERD, gallbladder disease, Crohn's. She arrives with complaint of pain in her left medial knee and posterior distal left thigh symptoms since yesterday. She denies any injury she was seen at [facility] and it was felt that she was concerning for a possible DVT therefore she was sent into the emergency room. Past medical history includes hypercholesterolemia, high blood pressure, hypothyroidism, diverticulitis, GERD, gallbladder disease, hemorrhoids, depression, fibroids, bulging disc, recent Crohn's diagnosis Past surgical history includes cardiac catheter, appendectomy, cholecystectomy, hysterectomy, tubal ligation, sinus surgery social history positive tobacco use. Timing/Duration: yesterday Severity: moderate Modifying Factors: Improves With: nothing Associated Symptoms: No nausea, No vomiting, No abdominal pain, No shortness of breath, No heartburn, No diaphoresis, No cough, No chills, No chest pain, No fever, No headaches, No malaise, No rash, No syncope, No seizure, No weakness Allergies/Adverse Reactions: Sulfa (Sulfonamide Antibiotics) [Sulfa(Sulfonamide Antibiotics)] Allergy ( Intermediate, Verified 08/10/17 10:00) Tightness of Throat itchng in throat Home Medications: Aspirin 81 gm Chew [Baby Aspirin 81 mg Chew] 81 mg PO DAILY 03/31/14 [ History] Pravastatin Sodium [Pravachol] 40 mg PO DAILY 03/31/14 [History] Omeprazole 20 MG [Prilosec 20 mg] 20 mg PO DAILY 07/06/14 [History] Scott/D3/Mag11/Zinc/Call Out Clerk/Marcus/Bor [Caltrate 600+D Plus Tablet] 2 tab PO DAILY 04/03 [History] Fluoxetine HCl [Prozac] 40 mg PO DAILY 04/03/16 [History] Losartan Potassium 50 mg [Cozaar 50 MG] 50 mg PO DAILY 04/03/16 [History] Cetirizine HCl [Zyrtec] 1 tab PO DAILY 05/21/17 [History] Levothyroxine Sodium 75 Mcg [Synthroid 75 Mcg] 75 mcg PO DAILY 05/21/17 [ History] Budesonide [Uceris] 9 mg PO DAILY 08/10/17 [History] Cholecalciferol (Vitamin D3) [Vitamin D3] 5,000 unit PO DAILY 08/10/17 [History] Cyanocobalamin (Vitamin B-12) [Vitamin B12] 1,000 mcg PO DAILY 08/10/17 [History ] Mesalamine 1.2 gm PO BID 08/10/17 [History] Vitamin E 400 Units [Vitamin E 400 UNIT SOFTGEL] 400 unit PO DAILY [History] Hx Tetanus, Diphtheria Vaccination/Date Given: No Hx Influenza Vaccination/Date Given: No Hx Pneumococcal Vaccination/Date Given: Yes - Review of Systems Constitutional: No Fever, No Chills Eyes: No Symptoms Ears, Nose, & Throat: No Symptoms Respiratory: No Cough, No Dyspnea Cardiac: No Chest Pain, No Edema, No Syncope Abdominal/Gastrointestinal: No Abdominal Pain, No Nausea, No Vomiting, No Diarrhea Genitourinary Symptoms: No Dysuria Musculoskeletal: Other (pain left medial knee and distal posterior distal thigh worse with palpation and movement of the left knee) Skin: No Rash Neurological: No Dizziness, No Focal Weakness, No Sensory Changes Psychological: No Symptoms Endocrine: No Symptoms All Other Systems: Reviewed and Negative - Past Medical History Pertinent Past Medical History: Yes Neurological History: No Pertinent History ENT History: No Pertinent History Cardiac History: High Cholesterol, Hypertension Respiratory History: No Pertinent History, Bronchitis Endocrine Medical History: Hypothyroidism Musculoskeletal History: Other GI Medical History: Crohns Disease, Diverticulitis, GERD, Gallbladder Disease, Hemorrhoids History: Other Psycho-Social History: Depression Female Reproductive Disorders: Fibroids Other Medical History: bulging disc jhonny x3 - Past Surgical History Past Surgical History: Yes Neuro Surgical History: No Pertinent History Cardiac: Cardiac Catheterization Respiratory: No Pertinent History Gastrointestinal: Appendectomy, Cholecystectomy Genitourinary: No Pertinent History Musculoskeletal: No Pertinent History Female Surgical History: Hysterectomy, Tubal Ligation Other Surgical History: Breast-reduction. Sinus-"surgery,went up and cleaned it out" - Social History Smoking Status: Current some day smoker How long have you smoked: 50 Exposure to second hand smoke: Yes () Drug Use: none Patient Lives Alone: No - Female History Hx Now: No - Nursing Vital Signs Nursing Vital Signs: Initial Vital Signs Temperature 98 F 08/10/17 09:51 Pulse Rate 78 08/10/17 09:51 Respiratory Rate 16 08/10/17 09:51 Blood Pressure 163/77 08/10/17 09:51 O2 Sat by Pulse Oximetry 98 08/10/17 09:51 Pain Scale Pain Intensity [] 6 Pain Intensity 6 - Physical Exam General Appearance: mild distress Eye Exam: PERRL/EOMI, eyes nml inspection Ears, Nose, Throat Exam: normal ENT inspection, TMs normal, pharynx normal, moist mucous membranes Neck Exam: normal inspection, non-tender, supple, full range of motion Respiratory Exam: normal breath sounds, lungs clear, No respiratory distress Cardiovascular Exam: regular rate/rhythm, normal heart sounds, normal peripheral pulses Gastrointestinal/Abdomen Exam: soft, normal bowel sounds, No tenderness, No mass Back Exam: normal inspection, normal range of motion, No CVA tenderness, No vertebral tenderness Extremity Exam: other (Pain with palpation left posterior distal thigh , left knee medially. dorsal pedal posterior tibial pulses equal 2/4, full range of motion left ankle, foot and toes, good capillary refill left toes, sensation intact to left toes.) Neurologic Exam: alert, oriented x 3, cooperative, normal mood/affect, nml cerebellar function, nml station & gait, sensation nml, No motor deficits Skin Exam: normal color, warm, dry, No rash SpO2 Interpretation: normal (98%) SpO2: 98 Oxygen Delivery: Room Air - Course Nursing assessment & vital signs reviewed: Yes - Radiology Exams Left Knee X-ray Interpretation: Interpreted by me, Negative, No Fracture, No Subluxation Ordered Tests: Active Orders 24 hr Category Date Time Status IV Insertion STAT Care 08/10/17 10:05 Active Immobilizer STAT Care 08/10/17 11:36 Active KNEE (1 OR 2 VIEW) Stat Exams 08/10/17 11:18 Ordered BMP Stat Lab 08/10/17 10:21 Completed CBC W DIFF Stat Lab 08/10/17 10:21 Completed D-DIMER QUANTITATION Stat Lab 08/10/17 10:21 Completed PROTIME WITH INR Stat Lab 08/10/17 10:21 Completed PTT Stat Lab 08/10/17 10:21 Completed Medication Summary Discontinued Medications Generic Name Dose Route Start Last Admin Trade Name Samara PRN Reason Stop Dose Admin Morphine Sulfate 4 mg 08/10/17 10:59 08/10/17 11:06 Morphine Sulfate 4 Mg Inj IV 08/10/17 11:00 4 mg STAT ONE Administration Morphine Sulfate Confirm 08/10/17 11:02 Morphine Sulfate 4 Mg Inj Administered 08/10/17 11:03 Dose 4 mg .ROUTE .[employer] ONE Lab/Rad Data: Laboratory Result Diagrams 08/10/17 10:21 08/10/17 10:21 Laboratory Results 08/10/17 08/10/17 08/10/17 Range/Units 10:21 10:21 10:21 WBC 9.6 (4.0-10.5) K/mm3 RBC 4.34 (4.1-5.4) M/mm3 Hgb 12.1 (12.0-16.0) gm/dl Hct 37.1 (35-47) % MCV 85.5 (78-100) fl MCH 27.9 (26-32) pg MCHC 32.6 (32-36) g/dl RDW 14.9 H (11.5-14.0) % Plt Count 425 (150-450) K/mm3 MPV 9.6 H (6-9.5) fl Gran % 64.7 (36.0-66.0) % Eos # (Auto) 0.09 (0-0.5) Absolute Lymphs (auto) 2.56 (1.0-4.6) Absolute Monos (auto) 0.71 (0.0-1.3) Lymphocytes % 26.6 (24.0-44.0) % Monocytes % 7.4 (0.0-12.0) % Eosinophils % 0.9 (0.00-5.0) % Basophils % 0.4 (0.0-0.4) % Absolute Granulocytes 6.24 (1.4-6.9) Basophils # 0.04 (0-0.4) PT 11.4 (9.95-12.35) SECONDS INR 0.98 (0.8-3.0) APTT 34.0 (25.3-37.0) SECONDS D-Dimer 353 (215-500) ng/mL Sodium 141 (137-145) mmol/L Potassium 3.9 (3.5-5.1) mmol/L Chloride 101 (98-107) mmol/L Carbon Dioxide 31 H (22-30) mmol/L Anion Gap 12.8 (5-15) MEQ/L BUN 11 (7-17) mg/dL Creatinine 0.58 (0.52-1.04) mg/dL Estimated GFR > 60.0 ML/MIN Glucose 89 (74-106) mg/dL Calcium 9.5 (8.4-10.2) mg/dL - Progress Progress: improved Progress Note: 08/10/17 10:12 67-year-old white female seen at [facility] sent to the emergency room with complaint of pain in her left distal posterior thigh and left medial knee symptoms since yesterday no known injury. Patient with the pain with flexion of her left knee located in the left distal thigh she is tender with palpation in the left medial knee and left distal thigh. Patient was offered a pain medication she states that she took a [place] tablet at approximately 7:00 and does not want anything right now. Will go ahead and obtain CBC BMP PT PTT and d-dimer. 08/10/17 11:19 Patient's d-dimer within normal limits. Patient given 4 mg of morphine IV. Will x-ray patient's left knee. Anticipate knee immobilizer. 08/10/17 11:38 x-ray left knee (my read) no fracture no dislocation. Will place left knee immobilizer. The patient states she has a walker at home Patient also has [place] at home she states she will take this as needed. Patient to ice and elevate her left knee 24-48 hours Follow-up with Dr. Delong if symptoms worse no better in 24-48 hours or persist longer than one week. - Departure Time of Disposition: 11:39 Departure Disposition: Home Clinical Impression: Left knee pain Qualifiers: Chronicity: acute Qualified Code(s): M25.562 - Pain in left knee Strain of left knee Qualifiers: Encounter type: initial encounter Qualified Code(s): S86.912A - Strain of unspecified muscle(s) and tendon(s) at lower leg level, left leg, initial encounter Condition: Fair Critical Care Time: No Referrals: ANIRUDH DELONG MD [Primary Care Provider] - Additional Instructions: Return home. Use your walker weightbearing as tolerated left knee. Ice to left knee 24-48 hours.. Use left knee immobilizer 48 hours longer if pain persist. Pain medications as at home. Follow-up with Dr. Delong if symptoms are worse, no better in 48 hours, or persist longer than one week. Return for acute distress or for severe symptoms. Your x-rays have been preliminarily read they will be reread tomorrow you will be contacted if any discrepancies are noted.
[2017-08-10 10:24] LABS: BASOPHIL % 0.4 % (0.0-0.4); Basophil (Absolute #) 0.04 (0-0.4); Eosinophil % 0.9 % (0.00-5.0); Eosinophil (Absolute #) 0.09 (0-0.5); Granulocyte Absolute (ANC) 6.24 (1.4-6.9); Granulocytes % 64.7 % (36.0-66.0); Hematocrit 37.1 % (35-47); Hemoglobin 12.1 gm/dl (12.0-16.0); Lymphocyte (Absolute #) 2.56 (1.0-4.6); Lymphocytes % 26.6 % (24.0-44.0); Mean Cell Volume 85.5 fl (78-100); Mean Corpuscular Hemoglobin 27.9 pg (26-32); Mean Corpuscular Hgb Concent. 32.6 g/dl (32-36); Mean Platelet Volume 9.6 fl (6-9.5); Monocyte (Absolute #) 0.71 (0.0-1.3); Monocytes % 7.4 % (0.0-12.0); Platelet Count 425 K/mm3 (150-450); Red Blood Count 4.34 M/mm3 (4.1-5.4); Red Cell Distribution Width 14.9 % (11.5-14.0); White Blood Count 9.6 K/mm3 (4.0-10.5)
[2017-08-10 10:44] LABS: ANION GAP 12.8 MEQ/L (5-15); BLOOD UREA NITROGEN 11 mg/dL (7-17); CHLORIDE 101 mmol/L (98-107); Calcium 9.5 mg/dL (8.4-10.2); Carbon Dioxide 31 mmol/L (22-30); Creatinine 1 0.58 mg/dL (0.52-1.04); Glucose 89 mg/dL (74-106); Potassium 3.9 mmol/L (3.5-5.1); SODIUM 141 mmol/L (137-145)
[2017-08-10 10:48] LABS: INR 0.98 (0.8-3.0)
[2017-08-10] MEDS ORDERED: MORPHINE SULFATE 4 MG INJ IV ONE (10:59)
[2017-08-10] MEDS ORDERED: MORPHINE SULFATE 4 MG INJ ONE (11:02)
[2017-08-10 11:50] VITALS: BP 156/81; PULSE 72
--- NOTE | 2017-08-10 16:22 | XRAY ---
Indication: Pain. No known injury. Comparison: None 2 views of the left knee demonstrates tiny patellar spurring and small nonspecific suprapatellar effusion. No other bony, articular, or soft tissue abnormalities.
== END 2017-08-10 12:08 | disposition home or self-care (01) ==
LOC: ED 09:48
DX: M25.562 Pain in left knee (principal); S86.912A Strain of unspecified muscle(s) and tendon(s) at lower leg level, left leg, initial encounter; M79.652 Pain in left thigh; Z79.899 Other long term (current) drug therapy
CPT/HCPCS: 36000; 36415; 73560; 80048; 85025; 85379; 85610; 85730; 96374; 99284; J2270

== ENCOUNTER 2020-07-19 19:19 | Emergency (ER) | payer BC, MEDICARE ==
[2020-07-19] MEDS ORDERED: TYLENOL 325 MG PO STA (20:05)
[2020-07-19] MEDS ORDERED: TYLENOL 325 MG ONE (20:07)
[2020-07-19 21:48] VITALS: O2SAT 98
--- NOTE | 2020-07-19 21:59 | ERPHSYRPT ---
- History of Present Illness Time Seen by Provider: 07/19/20 19:35 Source: patient Exam Limitations: no limitations Patient Subjective Stated Complaint: pt states, "I fell in the driveway and was helping my unload a cabinet and I fell, I heard a pop in my knee". Triage Nursing Assessment: pt c/o rt knee pain and rt buttock/hip pain. Pt was helping spouse unload a cabinet from truck and it was too heavy for her and she went down in the driveway. Pt states, "I felt a pop in my rt knee". pt has golf ball sized knot to lateral upper side of rt kne. Physician History: Patient is a 70-year-old female presents to our ED with pain to her right knee. Patient states she was assisting her and unloading a cabinet from the back of a pickup truck bed. Patient states that her knee twisted she felt a popping sensation and a sudden onset of pain. Patient's knee immediately became swollen. Pain described as an ache that is well localized. No radiation. Pain worse with movement and palpation. Pain improved with rest. No other injuries reported. Patient describes a swelling most notable at the lateral aspect of the knee. No falls. No associated nausea vomiting or diaphoresis. No lower extremity numbness tingling or weakness. She voices no other complaints at this time. Method of Injury: twisted Occurred: just prior to arrival Quality: constant, other Severity of Pain-Max: moderate Severity of Pain-Current: mild Lower Extremities Pain: knee: right Modifying Factors: Improves With: movement Associated Symptoms: none Allergies/Adverse Reactions: Sulfa (Sulfonamide Antibiotics) [Sulfa(Sulfonamide Antibiotics)] Allergy (Intermediate, Verified 07/19/20 19:42) Tightness of Throat itchng in throat Home Medications: Aspirin 81 gm Chew [Baby Aspirin 81 mg Chew] 81 mg PO DAILY 03/31/14 [History] Omeprazole 20 MG [Prilosec 20 mg] 20 mg PO DAILY 07/06/14 [History] Fluoxetine HCl [Prozac] 20 mg PO DAILY 04/03/16 [History] Losartan Potassium 50 mg [Cozaar 50 MG] 50 mg PO DAILY 04/03/16 [History] Levothyroxine Sodium 75 Mcg [Synthroid 75 Mcg] 75 mcg PO DAILY 05/21/17 [History] Cholecalciferol (Vitamin D3) [Vitamin D3] 5,000 unit PO DAILY 08/10/17 [History] Triamterene/Hydrochlorothiazid [Triamterene-Hctz 37.5-25 mg Tb] 0.5 tab PO DAILY 10/21/18 [History] Alendronate Sodium 70 mg [Fosamax 70 MG] 70 mg PO Q7D@0600 08/12/19 [History] Fluticasone/Salmeterol [Advair 100-50 Diskus] 1 each IH BID 08/12/19 [History] Montelukast Sodium 10 mg [Singulair 10 MG] 10 mg PO DAILY 08/12/19 [History] Simvastatin 40 mg PO DAILY 08/12/19 [History] Infliximab 100 mg [Remicade 100MG Injection] 100 mg IV UD 09/23/19 [History] Hx Tetanus, Diphtheria Vaccination/Date Given: Yes Hx Influenza Vaccination/Date Given: Yes Hx Pneumococcal Vaccination/Date Given: Yes Immunizations Up to Date: Yes Travel Risk - International Travel Have you traveled outside of the country in past 3 weeks: No - Coronavirus Screening Are you exhibiting any of the following symptoms?: No Close contact with a COVID-19 positive Pt in past 14-21 Days: No - Vaccine Status Have you recieved a Covid-19 vaccination: Yes 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 - Vaccination Dates Date of 2cond Vaccination (if applicable): 04/14/20 - Review of Systems Constitutional: No Symptoms, No Fever, No Chills Eyes: No Symptoms Ears, Nose, & Throat: No Symptoms Respiratory: No Symptoms, No Cough, No Dyspnea Cardiac: No Symptoms, No Chest Pain, No Edema, No Syncope Abdominal/Gastrointestinal: No Symptoms, No Abdominal Pain, No Nausea, No Vomiting, No Diarrhea Genitourinary Symptoms: No Symptoms, No Dysuria Musculoskeletal: No Symptoms, No Back Pain, No Neck Pain Skin: No Symptoms, No Rash Neurological: No Symptoms, No Dizziness, No Focal Weakness, No Sensory Changes Psychological: No Symptoms Endocrine: No Symptoms Hematologic/Lymphatic: No Symptoms Immunological/Allergic: No Symptoms All Other Systems: Reviewed and Negative - Past Medical History Pertinent Past Medical History: Yes Neurological History: No Pertinent History ENT History: No Pertinent History Cardiac History: Arrhythmia, High Cholesterol, Hypertension Respiratory History: No Pertinent History Endocrine Medical History: Hypothyroidism Musculoskeletal History: Arthritis, Rheumatoid Arthritis GI Medical History: Crohns Disease, Diverticulitis, GERD, Gallbladder Disease, Hemorrhoids History: Other Psycho-Social History: Depression Female Reproductive Disorders: Fibroids Other Medical History: bulging disc jhonny x3 - Past Surgical History Past Surgical History: Yes Neuro Surgical History: No Pertinent History Cardiac: Cardiac Catheterization Respiratory: No Pertinent History Gastrointestinal: Appendectomy, Cholecystectomy Genitourinary: No Pertinent History Musculoskeletal: No Pertinent History Female Surgical History: Hysterectomy, Tubal Ligation Other Surgical History: Breast-reduction. Sinus-"surgery,went up and cleaned it out" - Social History Smoking Status: Current every day smoker How long have you smoked: 50 yrs Exposure to second hand smoke: No Drug Use: none Patient Lives Alone: No - Female History Hx Now: No - Nursing Vital Signs Nursing Vital Signs: Initial Vital Signs Temperature 98.4 F 07/19/20 19:27 Pulse Rate 90 07/19/20 19:27 Respiratory Rate 20 07/19/20 19:27 Blood Pressure 141/69 07/19/20 19:27 O2 Sat by Pulse Oximetry 97 07/19/20 19:27 Pain Scale Pain Intensity 3 - Physical Exam General Appearance: alert Eyes, Ears, Nose, Throat Exam: moist mucous membranes Neck Exam: non-tender, supple Cardiovascular/Respiratory Exam: chest non-tender, normal breath sounds, regular rate/rhythm, no respiratory distress Gastrointestinal/Abdominal Exam: non-tender, guarding Back Exam: normal inspection, No vertebral tenderness Hips Exam: right: bone tenderness, soft tissue tenderness, left: non-tender, normal inspection, normal range of motion, no evidence of injury Legs Exam: bilateral leg: non-tender, normal inspection, normal range of motion, no evidence of injury Knees Exam: right knee: joint effusion, pain, swelling, other (Right knee presents with swelling and effusion on exam. Overlying soft tissue intact. Involved extremity is neurovascularly intact distally.), left knee: non-tender, normal inspection, normal range of motion, no evidence of injury Ankle Exam: bilateral ankle: non-tender, normal inspection, normal range of motion, no evidence of injury Foot Exam: bilateral foot: non-tender, normal inspection, normal range of motion, no evidence of injury Neuro/Tendon Exam: normal sensation, normal motor functions Mental Status Exam: alert, oriented x 3, cooperative Skin Exam: normal color, warm, dry SpO2 Interpretation: normal SpO2: 98 O2 Delivery: Room Air Ordered Tests: Active Orders 24 hr Category Date Time Status HIP UNI (2V) INCL PEL IF DONE Stat Exams 07/19/20 19:52 Taken KNEE (1 OR 2 VIEW) Stat Exams 07/19/20 19:51 Taken Medication Summary Discontinued Medications Generic Name Dose Route Start Last Admin Trade Name Samara PRN Reason Stop Dose Admin Acetaminophen 975 mg 07/19/20 20:05 07/19/20 20:08 Tylenol 325 Mg PO 07/19/20 20:06 975 mg STAT STA Administration Acetaminophen Confirm 07/19/20 20:07 Tylenol 325 Mg Administered 07/19/20 20:08 Dose 975 mg .ROUTE .[employer] ONE - Progress Progress: improved Progress Note: 07/19/20 22:02 Patient initially declined pain medication. She then requested pain medication. Patient received a dose of Tylenol. Pain improved. Patient comfortable at this time. Preliminary x-ray of right knee and hip are negative for fracture dislocation. However knee does show effusion on the lateral x-ray of the right knee. Patient given a knee immobilizer and crutches. Patient given Ortho referral. Patient will use [id number] analgesics for pain control. Patient does have an Ortho doctor in [place] that she normally sees. Patient states she may end up going to this doctor instead of our Ortho clinic. Patient states she is ready for discharge. She will follow-up with her Ortho doctor or per our referral within 48 hours for reevaluation. Counseled pt/family regarding: diagnosis, need for follow-up, rad results - Departure Departure Disposition: Home Clinical Impression: Knee effusion, right, Hip pain, right, Fall, Right knee sprain Condition: Stable Critical Care Time: No Referrals: ANIRUDH DELONG MD [Primary Care Provider] - Additional Instructions: Discharge/Care Plan CAROL LYMAN was seen on 07/19/20 in the Emergency Room. The patient was counseled regarding Diagnosis,Lab results, Imaging studies, need for follow up and when to return to the Emergency Room. Prescriptions given: Discharge Note I have spoken with the patient and/or caregivers. I have explained the patient's condition, diagnosis and treatment plan based on the information available to me at this time. I have answered the patient's and/or caregiver's questions and addressed any concerns. The patient and/or caregivers have as good understanding of the patient's diagnosis, condition and treatment plan as can be expected at this point. The vital signs have been stable. The patient's condition is stable and appropriate for discharge from the emergency department. The patient will pursue further outpatient evaluation with the primary care physician or other designated or consulting physician as outlined in the discharge instructions. The patient and/or caregivers are agreeable to this plan of care and follow-up instructions have been explained in detail. The patient and/or caregivers have received these instruction. The patient/and or caregivers are aware that any significant change in condition or worsening of symptoms should prompt an immediate return to this or the closest emergency department or call 911. Outpatient Orders: Ortho Referral Time Frame: 1 Day, Facility: [facility]. Hosp, Location: [facility]
[2020-07-19 22:24] VITALS: BP 148/76; PULSE 91
--- NOTE | 2020-07-20 09:07 | XRAY ---
Indication: Pain following fall. Comparison: None 2 view right knee demonstrates mild osteopenia, mild medial/patellofemoral degenerative arthropathy, and small nonspecific effusion. No other bony, articular, or soft tissue abnormalities.
--- NOTE | 2020-07-20 09:07 | XRAY ---
Indication: Pain following fall. Comparison: None 2 view right hip demonstrates mild osteopenia and mild lower lumbar degenerative changes. No other bony, articular, or soft tissue abnormalities.
== END 2020-07-19 22:26 | disposition home or self-care (01) ==
LOC: ED 19:19
DX: M25.461 Effusion, right knee (principal); M25.551 Pain in right hip; S83.91XA Sprain of unspecified site of right knee, initial encounter; W18.39XA Other fall on same level, initial encounter; Y93.89 Activity, other specified; Y92.89 Other specified places as the place of occurrence of the external cause
CPT/HCPCS: 73502; 73560; 99284; L1830; A9270-GY